=== PATIENT | female | born 1980 ===

== ENCOUNTER → 2016-08-18 | Day surgery (SDC) | payer OTHER ==
[2016-08-04 12:15] VITALS: Ht 180.3 cm; Wt 91.8 kg
--- NOTE | 2016-08-17 21:06 | HISTORY & PHYSICAL EXAMINATION ---
DATE OF ADMISSION: 08/18/2016 DIAGNOSIS: Chronic sinusitis and septal deviation. HISTORY OF PRESENT ILLNESS: This 36-year-old lady presented with recurrent chronic sinusitis and desires definitive treatment. PAST MEDICAL HISTORY: MEDICAL PROBLEMS: None. PREVIOUS SURGERIES: Jaw surgery in 1997. MEDICATIONS: Francia. ALLERGIES: None known. FAMILY HISTORY: Negative. SOCIAL HISTORY: Negative. REVIEW OF SYSTEMS: Otherwise negative. PHYSICAL EXAMINATION: GENERAL: WNWD female, in no acute distress. VITAL SIGNS: She is 5 feet 11 inches, 202 pounds. HEAD: Normocephalic. EYES: Normal. EARS: Tympanic membranes intact. NOSE: Nasal passages show septal deviation and swollen turbinates. NECK: Supple. HEART: RRR. LUNGS: Clear. ABDOMEN: Soft. GENITOURINARY: Deferred. EXTREMITIES: Full range of motion. IMPRESSION: Chronic sinusitis and septal deviation. PLAN: For septoplasty and endoscopic sinus surgery.
[~2016-08-18] VITALS: Ht 180.3 cm; Wt 91.8 kg
[~2016-08-18] MED LIST: ATROPINE SULFATE 0.1 MG/ML 5ML SYR IV PRN; BACITRACIN OINT 15 GM TUBE ONE; CEFAZOLIN 2000 MG/60 ML D5W IV SCH; DEXAMETHASONE SOD INJ 4 MG/ML VIAL ONE; EpHEDrine SULFATE INJ 50 MG/ML AMP IV PRN; EpINEphrine INJ 1MG/ML AMP 1 MG/ML AMP ONE; FENTANYL CITRATE INJ 50 MCG/1 ML 2 ML VIAL ONE; FEXO1TAB49 PO; GELATIN SPONGE 12-7MM ONE; LACTATED RINGER'S 1000ML 1,000 ML IV SCH; LIDO 2%/EPINEPHRINE 1:100000 20 ML VIAL INFIL ONE; LIDOCAINE 4% MPF SOAK 5 ML = 1 DOSE TOP ONE; LIDOCAINE HCL 2% 2 ML VIAL (20MG/ML) ONE; MIDAZOLAM HCL 1 MG/ML 2ML VIAL ONE; ONDANSETRON INJ 2 MG/ML 2 ML VIAL ONE; OXYC-57 PO; OXYCODONE/ACETAMINOPHEN 5-325 TAB PO PRN; OXYMETAZOLINE HCL 0.05% NA SPR 15 ML BTL SCH; PRENTAB26 PO; PROPOFOL IV EMULSION 10 MG/ML 20 ML VIAL IV ONE; SODIUM CHLORIDE 0.9% 1000ML 1,000 ML IV SCH
--- NOTE | 2016-08-18 07:02 | History & Physical Bridge Note ---
H&P Re-Evaluation Bridge Note: I have examined the patient, reviewed the History & Physical and in the interval since the performance of the History & Physical I have noted the following changes of clinical significance: No changes noted
[2016-08-18] MEDS: FENTANYL CITRATE INJ 50 MCG/1 ML 2 ML VIAL IV PRN ×2 (09:09→09:22)
--- NOTE | 2016-08-18 09:09 | Discharge Instructions-SurgCtr ---
Discharge Instructions Date of Service Aug 18, 2016. Visit Reason for Visit: Chronic Sinusitis, Septal Deviation Discharge Discharge Diagnosis / Problem: same Discharge Goals Goal(s): Improve disease control Activity Recommendations Activity Limitations: resume your previous activity Anesthesia . Post Anesthesia Instructions: If you have had General Anesthesia or IV Sedation: * Do not drive today. * Resume driving when surgeon permits. * Do not make important decisions or sign legal documents today. * Call surgeon for: 1. Temperature elevations greater than 101 degrees F. 2. Uncontrollable pain. 3. Excessive bleeding. 4. Persistent nausea and vomiting. 5. Medication intolerance (nausea, vomiting or rash). * For nausea and vomiting use only clear liquids such as: tea, soda, bouillon until nausea subsides, then gradually increase diet as tolerated. * If you have any concerns or questions, call your surgeon's office. If physician is unavailable and it is an emergency, call 911 or go to the nearest emergency room. . Diet Recommendations Home Diet: no limitations Procedures Procedures Performed: Septoplasty, endoscopic sinus surgery to include left and right maxillary, left and right frontal, left and right sphenoid, and left and right total ethmoidectomies Pending Studies Studies pending at discharge: no Medical Emergencies . Who to Call and When: Medical Emergencies: If at any time you feel your situation is an emergency, please call 911 immediately. . Non-Emergent Contact Non-Emergency issues call your: Primary Care Provider . . "Provider Documentation" section prepared by Estefani Dasilva. [facility] Monitoring Program Search Results: no issues identified
--- NOTE | 2016-08-18 09:11 | Discharge Instructions-SurgCtr ---
Discharge Instructions Date of Service Aug 18, 2016. Visit Reason for Visit: Chronic Sinusitis, Septal Deviation Discharge Discharge Diagnosis / Problem: same Discharge Goals Goal(s): Improve disease control Activity Recommendations Activity Limitations: resume your previous activity Anesthesia . Post Anesthesia Instructions: If you have had General Anesthesia or IV Sedation: * Do not drive today. * Resume driving when surgeon permits. * Do not make important decisions or sign legal documents today. * Call surgeon for: 1. Temperature elevations greater than 101 degrees F. 2. Uncontrollable pain. 3. Excessive bleeding. 4. Persistent nausea and vomiting. 5. Medication intolerance (nausea, vomiting or rash). * For nausea and vomiting use only clear liquids such as: tea, soda, bouillon until nausea subsides, then gradually increase diet as tolerated. * If you have any concerns or questions, call your surgeon's office. If physician is unavailable and it is an emergency, call 911 or go to the nearest emergency room. . Instructions / Follow-Up Instructions / Follow-Up ACTIVITY RECOMMENDATIONS: * Being up and around is good, but no strenuous activity, heavy lifting or physical exertion for one week. * Keep your head elevated 30 degrees when lying down or sleeping. * Do not blow your nose for 48 hours, sniff back instead. * Avoid hot showers. OVER THE COUNTER MEDICATIONS: * You may use Tylenol * Avoid aspirin or aspirin containing products, e.g. as they may increase bleeding. SPECIAL CARE INSTRUCTIONS: * Expect to have bloody drainage from your nose and/or down your throat for one to three days. Change drip pad as needed. * Begin irrigating your nose with saline solution today, at least six to ten times per day and sniff back to help remove old clots or crust. * You may experience nasal and facial congestion, pain and pressure, this is normal. * Please call with any significant and/or progressive pain, redness, swelling around the eyes, visual changes, fever of 101.5 degrees F, active bleeding or any problems or concerns. * If active bleeding occurs, spray the nose three times at one minute intervals with Afrin spray and call or cell phone: . If unable to reach the doctor, go to the nearest Emergency Department. Special Diet: * Avoid extremely hot fluids. FOLLOW UP VISIT: Follow-up Visit with Dr. Dasilva If not already scheduled, please call to schedule. Diet Recommendations Home Diet: no limitations Procedures Procedures Performed: Septoplasty, endoscopic sinus surgery to include left and right maxillary, left and right frontal, left and right sphenoid, and left and right total ethmoidectomies Pending Studies Studies pending at discharge: no Medical Emergencies . Who to Call and When: Medical Emergencies: If at any time you feel your situation is an emergency, please call 911 immediately. . Non-Emergent Contact Non-Emergency issues call your: Primary Care Provider . . "Provider Documentation" section prepared by Estefnai Dasilva.
[2016-08-18 09:44] VITALS: TEMP 37
[2016-08-18 10:09] VITALS: BP 128/89; O2SAT 98
--- NOTE | 2016-08-18 11:39 | Anesthesia Progress Nt - [facility] ---
Anesthesia Post Op Note Date & Time Aug 18, 2016 at 11:39 Vital Signs Pain Intensity: 0 Vital Signs Past 12 Hours Date Time Temp Pulse Resp B/P Pulse Ox O2 Delivery O2 Flow Rate FiO2 08/18/16 10:09 75 18 128/89 98 Room Air 08/18/16 09:44 37.0 84 16 138/92 100 Room Air 08/18/16 09:34 99 22 08/18/16 09:34 101 22 100 08/18/16 09:33 84 22 99 08/18/16 09:33 84 22 08/18/16 09:32 81 18 08/18/16 09:32 80 18 99 08/18/16 09:30 137/90 08/18/16 09:30 36.8 83 18 137/90 99 Room Air 08/18/16 09:27 89 17 08/18/16 09:27 91 17 99 08/18/16 09:25 135/97 08/18/16 09:22 89 19 99 08/18/16 09:22 88 19 08/18/16 09:21 83 16 98 08/18/16 09:21 84 16 08/18/16 09:20 132/92 08/18/16 09:16 86 15 08/18/16 09:16 88 15 99 08/18/16 09:15 128/91 08/18/16 09:11 80 12 08/18/16 09:11 78 12 98 08/18/16 09:10 132/98 08/18/16 09:07 84 16 99 08/18/16 09:07 84 16 08/18/16 09:05 132/92 08/18/16 09:02 85 12 100 08/18/16 09:02 85 12 08/18/16 09:00 130/93 08/18/16 08:57 85 13 100 08/18/16 08:57 85 13 08/18/16 08:56 84 20 08/18/16 08:56 84 20 100 08/18/16 08:55 128/90 08/18/16 08:51 89 13 100 08/18/16 08:51 87 13 08/18/16 08:50 131/98 08/18/16 08:47 91 11 08/18/16 08:47 92 11 100 08/18/16 08:45 129/99 08/18/16 08:42 36.7 100 12 125/88 100 Mask 8 08/18/16 08:42 92 13 08/18/16 08:42 93 13 100 08/18/16 06:27 36.5 88 18 126/89 98 Room Air Notes Mental Status: alert / awake / arousable, participated in evaluation Pt Amnestic to Procedure: Yes Nausea / Vomiting: adequately controlled Pain: adequately controlled Airway Patency, RR, SpO2: stable & adequate BP & HR: stable & adequate Hydration State: stable & adequate Anesthetic Complications: no major complications apparent
--- NOTE | 2016-08-18 11:53 | OPERATIVE REPORT ---
DATE OF OPERATION: 08/18/2016 PREOPERATIVE DIAGNOSES: Chronic sinusitis, septal deviation. POSTOPERATIVE DIAGNOSIS: Same. PROCEDURE: Right and left frontal, right and left sphenoid, right and left total ethmoid and right and left maxillary sinus antrostomies with endoscopic septoplasty. SURGEON: Dr. Dasilva. ANESTHESIA: General LMA. COMPLICATIONS: None. BLOOD LOSS: 30 mL. HISTORY OF PRESENT ILLNESS: A 36-year-old lady with significant recurrent chronic sinusitis and septal deviation. PROCEDURE: The patient brought to the operating room, placed supine position. General endotracheal anesthesia was induced, prepped, draped in usual sterile manner. The BrainLAB device was calibrated and used for the entire procedure. The nose was decongested using topical cottonoids with a solution of 4 mL of 4% Xylocaine mixed with 1 mL of epinephrine. Injection 2% Xylocaine 1:1,000 strength epinephrine was also used. The right sphenoid was cannulated with guidewire with BrainLAB computer guidance and dilated using the 6 mm balloon as was the left sphenoid sinus. The right maxillary sinus was cannulated with guidewire and dilated using 6 mm balloon as was the left maxillary sinus. At this point, the right nasofrontal duct was cannulated with guidewire and dilated using the 6 mm balloon with the BrainLAB computer guidance. The guidewire was left in place as a marker. Frontal sinusotomy was performed by using the shaver coupled with the BrainLAB device, removing the anterior wall, then the posterior wall of the agger nasi cell, opening up the nasal frontal duct by removing the posterior and superior wall of the agger nasi cell leaving the mucosa in the nasofrontal duct intact. At this point, total ethmoidectomy was performed opening up the bullae ethmoidalis going through the ground lamella into the posterior ethmoid air cell, identifying the posterior most ethmoid air cell and the skull base and lamina papyracea with the BrainLAB device following these structures anteriorly exonerating all the posterior and all the anterior ethmoid air cells along with significant amount of polyps. The nasofrontal duct was dilated open with the 6 mm balloon and then the balloon was removed. Maxillary sinus was opened by removing polypoid tissue at the posterior border. Sphenoid was opened by removing polypoid tissue at the inferior border of the superior turbinate. The left frontal sinusotomy, total ethmoidectomy, sphenoidotomy, and maxillary sinus antrostomy was performed in a similar manner. At this point, Propel stents were placed. Attention was turned to the septum. Incision was made over the septal spur projecting to the left using the 15 blade. Superior inferior tunnels were elevated and the spur was fractured superiorly and bilateral posterior tunnels were elevated and the bony cartilaginous spur was removed using the 15 blade, the caudal dissector and the Maranda forceps. This returned the septum to the midline. The septum was packed with a single piece of Gelfoam on the left side. The patient tolerated the procedure well and was taken to recovery area in satisfactory condition. I attest to the content of the Intraoperative Record and any orders documented therein. Any exceptio ns are noted below.
== END | disposition home or self-care (01) ==
LOC: X.SURG 06:11
PROVIDERS: ATTEND Otolaryngology
DX: J32.9 Chronic sinusitis, unspecified (principal); J34.2 Deviated nasal septum